=== PATIENT | female | born 1955 | race Caucasian/White ===

== ENCOUNTER → 2020-12-08 14:33 | Outpatient (CLI) | payer OTHER, SELFPAY ==
--- NOTE | 2020-12-08 14:41 | CT_ITS ---
STUDY: CT SCAN LOWER EXTREMITY LEFT REASON FOR EXAM: Female, 65 years old. Left knee varus deformity, surgical planning for makoplasty. RADIATION DOSAGE (If Supplied By Facility): CTDIvol = ( 18.76 ) mGy, DLP = ( 1150.41 ) mGycm. Individualized dose optimization techniques were used for this CT.? TECHNIQUE: Multiple axial tomographic images of the left lower extremity was performed. Axial and coronal reconstruction was obtained as well. COMPARISON: None. FINDINGS: Imaging of the left hip was performed. No significant joint space narrowing is seen. No bony abnormality is present. Imaging of the knee joint was obtained. There is a marked degree of joint space narrowing with subchondral cystic changes and sclerosis along the medial compartment of the knee joint. There is evidence of degenerative spur formation along the medial femoral condyle as well as the medial tibial plateau. Marked degree of joint space narrowing involving the patellofemoral joint. Imaging of the ankle was obtained as well. No significant abnormality is seen. CT/Extremity Lower without Contra IMPRESSION: Moderate degree of joint space narrowing with degenerative spur formation along the medial aspect of the knee joint as well as patellofemoral joint. Electronically Signed: Jabier Raza MD at 15:37 EST , Service support ,
== END ==
PROVIDERS: PCP Internal Medicine; Referring Provider Orthopaedic Surgery; Visit Provider Orthopaedic Surgery
DX: M21.162 Varus deformity, not elsewhere classified, left knee (principal); M17.12 Unilateral primary osteoarthritis, left knee
CPT/HCPCS: 73700

== ENCOUNTER 2020-12-26 07:32 | Observation (INO) | payer OTHER, MEDICARE, SELFPAY ==
--- NOTE | 2020-12-19 10:55 | EKG12_ITS ---
Test Reason : PRE OP Blood Pressure : / mmHG Vent. Rate : 092 BPM Atrial Rate : 092 BPM P-R Int : 150 ms QRS Dur : 092 ms QT Int : 360 ms P-R-T Axes : 068 062 065 degrees QTc Int : 445 ms Normal sinus rhythm Normal ECG Confirmed by MAHESH ZULUAGA, IRLANDA ([id number]), online editor CHRISTY SAMUEL ([id number]) on 12/20/2020 10:30:27 AM Referred By: Dharmesh Delcid Confirmed By:IRLANDA ARAGON MD
[2020-12-19 12:03] LABS: Hematocrit 38.8 % (37-47); Mean Corp Hgb Conc 33.5 g/dL (32-36); Mean Corpuscular Hgb 30.1 pg (27.0-32.0); Mean Corpuscular Volume 89.8 fL (81-99); Mean Platelet Vol. 10.3 fl (6.2-12.0); Platelet Count 163 K/mm3 (150-450); RBC Distribution Width CV 12.7 % (11.6-14.6); RBC Distribution Width SD 40.8 fl (35.1-43.9); Red Blood Count 4.32 M/mm3 (4.2-5.4); White Blood Count 7.3 K/mm3 (4.4-11.0)
[2020-12-19 12:58] LABS: Anion Gap 8 (5-15); BUN 21 mg/dL (7-18); BUN/Creat Ratio 26.6 RATIO (10-20); Calcium,Total 9.4 mg/dL (8.5-10.1); Chloride 104 mmol/L (98-107); Creatinine, Serum 0.79 mg/dL (0.55-1.02); EST Glomerular Filtration Rate 78 mL/min (>60); Est Glom Filt Rate - Afr Amer 94 mL/min (>60); Glucose 104 mg/dL (74-106); Sodium Level 140 mmol/L (136-145)
[2020-12-19 13:06] LABS: Magnesium 2.1 mg/dL (1.6-2.6); Thyroid Stim Hormone (TSH) 0.81 uIU/mL (0.358-3.74)
[2020-12-26] VITALS (17 sets, daily range): BP systolic 79–139; BP diastolic 47–89; PULSE 75–95; RESP 16–18; TEMP 36.2–36.8; O2SAT 88–100; BMI 31.7
--- NOTE | 2020-12-26 | KNEE_PTH ---
PATIENT: LEOLA GANNON LOC: MS3 U#:[id number] AGE/SX: 65/F ROOM: CT313 RE12/26/[address]: Dr. Dharmesh Delcid DO : 1955 BED: 1 DIS: 12/27/2020 SPEC #: [id number] RECD: 12/26/20 12:50 STATUS: ANNIE DANIELLE #: [id number] GIORGIO: 12/26/20 00:[address]: Dharmesh Delcid DEPT: SURGICAL PATHOLOGY RECD BY: [place] ENTERED: 12/26/20 12:51 SP TYPE: TOTAL KNEE OTHR DR: Dr. Salma Vang MD Tissues: Knee, NOS Procedures: Decalcification bone/plaque Surgery Specimen Level IV HEADER OPERATION: ERAS, total knee replacement, robotic arm assist PRE-OP DIAGNOSIS: Osteoarthritis left knee TISSUE SUBMITTED: Bone and soft tissue left knee MICROSCOPIC DIAGNOSIS Bone and tissue, left knee, total knee replacement/resection: Pieces of bone with degenerative osteoarthritic changes. KIM:ally 12/29/2020 MICROSCOPIC DESCRIPTION Slides are reviewed. GROSS DESCRIPTION Received is one container designated bone and soft tissue left knee. The specimen consists of multiple fragments of quiñonez-yellow bone measuring in aggregate 11 x 10 x 3 cm. No soft tissue is identified. A number of bony fragments contain articular surfaces consistent with tibial plateau and femoral condyle and displaying prominent osteophyte formation and bone erosion. Still Operator sections are submitted in two cassettes after decalcification. / KIM:ally 12/26/20 TC:5 CPT: 14770, 34155
[2020-12-26 05:56] LABS: Bedside Glucose 108 mg/dL (70-110)
[2020-12-26] MEDS: Gabapentin 600 MG Tablet PO (06:22)
[2020-12-26] MEDS: Acetaminophen 500 MG Tablet 1000 MG PO ×3 (06:22→22:09)
[2020-12-26] MEDS: Lactated Ringers 1,000 ML 100 ML IV (06:30)
[2020-12-26] MEDS: Cefazolin 2 GM in 0.9% Normal Saline 100 ML IV (07:33)
[2020-12-26] MEDS: Scopolamine 1mg/72hr Patch 1 PATCH TD (07:45)
--- NOTE | 2020-12-26 08:48 | PCM.OPRPT ---
Report of Operation Date of Procedure: 12/26/20 Pre-Operative Diagnosis: OA Left knee Post-Operative Diagnosis: same Surgery/Procedure Performed:: Left TKR buttonhole maker hand: Blayne Loza Type of Anesthesia:: Spinal Anesthesiologist: Wily Weller Special Medications: TXA Specimen's removed: bone Estimated Blood Loss (mL): 25cc Fluids Replaced: 1000 cc crystalloid - Admit VTE Documentation VTE Present on Admission: No VTE Mechan Device Prophylaxis: SCD's, Thigh High ABBEY Hose VTE Pharm Prophylaxis ordered?: Yes
--- NOTE | 2020-12-26 09:35 | RAD_ITS ---
STUDY: X-RAY - LEFT KNEE REASON FOR EXAM: Female, 65 years old. post op -- AP and Lateral xray of operative knee in PACU TECHNIQUE: 2 view(s) of the knee. COMPARISON: None. FINDINGS: Status post total knee arthroplasty. Surgical hardware intact/well aligned. No acute complications. Postoperative soft tissues with staple line. RAD/Knee 1 or 2 Views IMPRESSION: Uncomplicated left knee arthroplasty Electronically Signed: Devin wSan DO at 9:58 EST Tel , Service support ,
[2020-12-26 10:36] LABS: Hematocrit 37.4 % (37-47); Mean Corp Hgb Conc 32.1 g/dL (32-36); Mean Corpuscular Hgb 28.4 pg (27.0-32.0); Mean Corpuscular Volume 88.6 fL (81-99); Mean Platelet Vol. 10.1 fl (6.2-12.0); Platelet Count 189 K/mm3 (150-450); RBC Distribution Width CV 12.2 % (11.6-14.6); RBC Distribution Width SD 39.4 fl (35.1-43.9); Red Blood Count 4.22 M/mm3 (4.2-5.4); White Blood Count 6.3 K/mm3 (4.4-11.0)
[2020-12-26 10:57] LABS: Anion Gap 4 (5-15); BUN 18 mg/dL (7-18); BUN/Creat Ratio 19.2 RATIO (10-20); Calcium,Total 8.6 mg/dL (8.5-10.1); Chloride 107 mmol/L (98-107); Creatinine, Serum 0.94 mg/dL (0.55-1.02); EST Glomerular Filtration Rate 64 mL/min (>60); Est Glom Filt Rate - Afr Amer 77 mL/min (>60); Estimated Creatinine Clearance 49.36 ml/min; Glucose 141 mg/dL (74-106); Potassium 3.8 mmol/L (3.5-5.1); Sodium Level 139 mmol/L (136-145)
[2020-12-26] MEDS: Lactated Ringers 1,000 ML 125 ML IV ×3 (10:59→20:00)
[2020-12-26] MEDS: 0.9% Saline Lock 10 ML Syringe IV (12:14)
[2020-12-26] MEDS: Ondansetron 4 MG/2 ML Vial IV (12:14)
[2020-12-26] MEDS: Cefazolin 1 GM/50 ML BAG IV ×2 (15:02→22:33)
[2020-12-26] MEDS: Senna/Docusate Sodium 1 Tablet 2 TABLET PO (22:09)
[2020-12-26] MEDS: Aspirin 81 MG TAB.CHEW PO (22:09)
[2020-12-26] MEDS: Atorvastatin Calcium 40 MG Tablet PO (22:09)
[2020-12-27 02:50] VITALS: BP 114/62; PULSE 69; RESP 18; TEMP 36.6; O2SAT 94
[2020-12-27] MEDS: Levothyroxine 150 MCG Tablet PO (05:22)
[2020-12-27] MEDS: Lactated Ringers 1,000 ML 125 ML IV (05:22)
[2020-12-27] MEDS: oxyCODONE 5 MG Tablet PO ×3 (05:22→13:57)
[2020-12-27] MEDS: Acetaminophen 500 MG Tablet 1000 MG PO ×2 (06:15→13:56)
[2020-12-27 06:16] LABS: Hemoglobin 9.8 g/dL (12.0-15.0); Mean Corp Hgb Conc 31.6 g/dL (32-36); Mean Corpuscular Hgb 28.3 pg (27.0-32.0); Mean Corpuscular Volume 89.6 fL (81-99); Mean Platelet Vol. 10.3 fl (6.2-12.0); Platelet Count 155 K/mm3 (150-450); RBC Distribution Width CV 12.4 % (11.6-14.6); Red Blood Count 3.46 M/mm3 (4.2-5.4); White Blood Count 10.3 K/mm3 (4.4-11.0)
[2020-12-27 06:36] LABS: Anion Gap 4 (5-15); BUN 18 mg/dL (7-18); BUN/Creat Ratio 24.9 RATIO (10-20); Calcium,Total 8.7 mg/dL (8.5-10.1); Chloride 109 mmol/L (98-107); Creatinine, Serum 0.72 mg/dL (0.55-1.02); EST Glomerular Filtration Rate 86 mL/min (>60); Est Glom Filt Rate - Afr Amer 104 mL/min (>60); Estimated Creatinine Clearance 64.44 ml/min; Glucose 115 mg/dL (74-106); Potassium 4.4 mmol/L (3.5-5.1); Sodium Level 142 mmol/L (136-145)
[2020-12-27 07:41] VITALS: O2SAT 94
--- NOTE | 2020-12-27 07:54 | PCM.PN.ORT ---
Subjective: Patient sitting at bedside. Patient states pain is well-managed. Patient denies chest pain, shortness of breath, nausea vomiting. Patient has no other complaints ready for discharge home today. Objective: Dressings clean dry intact. Negative signs and symptoms of DVT. Vital signs labs reviewed noted in medical record. Patient is afebrile. Patient's neurovascular is otherwise intact. Patient is no respiratory distress, speaking in full sentences. - Physical Exam Vitals/I&O's: Vital Signs Temp Pulse Resp BP Pulse Ox 98 F 69 18 114/62 94 12/27/20 02:50 12/27/20 02:50 12/27/20 02:50 12/27/20 02:50 12/27/20 02:50 Oxygen Flow Rate (L/min) 2 Oxygen Delivery Method Nasal Cannula Weight: 81.2 kg Body Mass Index (BMI) 31.7 Intake and Output for Last 24 Hours 12/25/20 12/26/20 12/27/20 23:59 23:59 23:59 Intake Total 3312.08 / 3312.08 1000 / 1000 Balance 3312.08 / 3312.08 1000 / 1000 General: Alert, Oriented x3, Cooperative HEENT: PERRLA Oral: Moist Mucosa Skin: No rashes Neurological: Cranial nerves II-XII grossly intact Psych/Mental Status: Normal Affect, Alert and oriented to time, place, person, mood and affect Laboratory Results 12/26/20 10:25: WBC 6.3, RBC 4.22, Hgb 12.0, Hct 37.4, MCV 88.6, MCH 28.4, MCHC 32.1, RDW Std Deviation 39.4, RDW Coeff of Mat 12.2, Plt Count 189, MPV 10.1 12/26/20 10:25: Sodium 139, Potassium 3.8, Chloride 107, Carbon Dioxide 28.0, Anion Gap 4 L, BUN 18, Creatinine 0.94, Estim Creat Clear Calc 49.36, Est GFR (MDRD) Af Amer 77, Est GFR (MDRD) Non-Af 64, BUN/Creatinine Ratio 19.2, Glucose 141 H, Calcium 8.6 12/27/20 05:50: WBC 10.3, RBC 3.46 L, Hgb 9.8 L, Hct 31.0 L, MCV 89.6, MCH 28.3, MCHC 31.6 L, RDW Std Deviation 40.0, RDW Coeff of Mat 12.4, Plt Count 155, MPV 10.3 12/27/20 05:50: Sodium 142, Potassium 4.4, Chloride 109 H, Carbon Dioxide 29.0, Anion Gap 4 L, BUN 18, Creatinine 0.72, Estim Creat Clear Calc 64.44, Est GFR (MDRD) Af Amer 104, Est GFR (MDRD) Non-Af 86, BUN/Creatinine Ratio 24.9 H, Glucose 115 H, Calcium 8.7 Current Medications Acetaminophen (Acetaminophen 500 Mg Tablet) 1,000 mg PO Q8H [facility] Last Admin: 12/27/20 06:15 Dose: 1,000 mg Documented by: Aspirin (Aspirin 81 Mg Tab.Chew) 81 mg PO BID [facility] Last Admin: 12/26/20 22:09 Dose: 81 mg Documented by: Atorvastatin Calcium (Atorvastatin Calcium 40 Mg Tablet) 40 mg PO QHS [facility] Last Admin: 12/26/20 22:09 Dose: 40 mg Documented by: Lactated Ringer's () 1,000 mls @ 125 mls/hr IV .Q8H [facility] Last Admin: 12/27/20 05:22 Dose: 125 mls/hr Documented by: Levothyroxine Sodium (Levothyroxine 150 Mcg Tablet) 150 mcg PO DAILY@0600 [facility] Last Admin: 12/27/20 05:22 Dose: 150 mcg Documented by: Ondansetron HCl (Ondansetron 4 Mg/2 Ml Vial) 4 mg IV Q8H PRN PRN PRN Reason: NAUSEA Last Admin: 12/26/20 12:14 Dose: 4 mg Documented by: Oxycodone HCl (Oxycodone 5 Mg Tablet) 5 - 10 mg PO Q4H PRN PRN PRN Reason: Pain Score 4-10 Last Admin: 12/27/20 05:22 Dose: 10 mg Documented by: Promethazine HCl (Promethazine 25 Mg/Ml Syringe) 12.5 mg IM Q6H PRN PRN; Protocol PRN Reason: NAUSEA/VOMITING Senna/Docusate Sodium (Senna/Docusate Sodium 1 Tablet) 2 tablet PO BID [facility] Last Admin: 12/26/20 22:09 Dose: 2 tablet Documented by: Sodium Chloride (0.9% Saline Lock 10 Ml Syringe) 10 - 40 ml IV UD PRN PRN Reason: SALINE FLUSH Last Admin: 12/26/20 12:14 Dose: 10 ml Documented by: Medical Necessity - Tobacco Use Smoking Status: Never smoker Assessment/Plan Status post left total knee arthroplasty Plan 1. Continue all pain medications as prescribed 2. Begin physical therapy weight-bear as tolerated with walker 3. Continue physical therapy outpatient at [facility] [place] 4. 81 mg aspirin 1 p.o. every 12 hours x30 days for postop DVT prophylaxis 5. Encourage incentive spirometry 6. Discharge home today after p.m. therapy 7. Follow-up as scheduled, see pink sheet
--- NOTE | 2020-12-27 08:00 | PCM.DC.TKR ---
Discharge Diet: No Restrictions Discharge Activity: May Not Drive, May Shower, Use Walker May shower in (days): 3 Ice area for (Minutes): 20 - each hour while awake. Weight Bearing Status: Weight bearing as tolerated Elevate: Operative Extremity Additional Activity Instructions:: Wear elastic stockings for 2 weeks after your surgery. Call your doctor if your incision/area has: Continuous Slow Oozing, Sudden Increased Bleeding, Increased Pain/ Swelling, Increased Redness, Foul Smelling Discharge Call your doctor if you observe: Fever of 101 or Higher, Coldness, Increased Pain - in extremity, Numbness or Tingling, Change in Color, Calf discomfort, Uncontrolled pain Change Dressing in (Days):: 0 - and daily as needed. Remove Dressing in (days):: 8 Cleanse incision/area with: Soap & Water Allergies/Adverse Reactions: Allergies No Known Allergies Allergy (Verified 12/26/20 05:57) Medications to take at Discharge Cholecalciferol (Vitamin D3) [Vitamin D3] 10,000 unit PO DAILY 11/22/14 Levothyroxine [Synthroid] 150 mcg PO DAILY 11/22/14 Rosuvastatin Calcium 20 mg PO DAILY 12/12/20 Acetaminophen [Tylenol] 1,000 mg PO Q8H #90 tab 12/27/20 Aspirin [Aspirin, Baby] 81 mg PO BID #60 tab.chew 12/27/20 Oxycodone [Oxyir] 5 - 10 mg PO Q4H PRN PRN 7 Days #84 tablet 12/27/20 Senna/Docusate Sodium [Senokot-S] 2 tablet PO BID tablet 12/27/20 The following prescriptions were given: Aspirin [Aspirin, Baby] 81 mg PO BID #60 tab.chew Transmission Status: Pending to [facility] Oxycodone [Oxyir] 5 - 10 mg PO Q4H PRN PRN 7 Days #84 tablet PRN Reason: Pain Score 4-10 Transmission Status: Sent to [facility] Acetaminophen [Tylenol] 1,000 mg PO Q8H #90 tab Transmission Status: Pending to [facility] Primary Care Physician: Salma Vang MD [Primary Care Provider] - Test Results: Test results from this visit will be discussed in further detail at your follow-up appointment, if applicable. Please Follow Up With: Blayne Loza PA-C When: as scheduled (see pink sheet)
--- NOTE | 2020-12-27 09:37 | PHA.DC.MC ---
Pharmacy Service has performed discharge medication reconciliation and counseling for this patient. 1. ACETAMINOPHEN 1000MG Q8H 2. ASPIRIN 81MG PO BID 3. OXYCODONE 5-10MG PO Q4H PRN PAIN 4-10 X 7 DAYS 4. SENNA/DOCUSATE 1T PO BID The patient's discharge medication list was reviewed for discrepancies and discrepancies were resolved. Home Medications Cholecalciferol (Vitamin D3) [Vitamin D3] 10,000 unit PO DAILY 11/22/14 Levothyroxine [Synthroid] 150 mcg PO DAILY 11/22/14 Rosuvastatin Calcium 20 mg PO DAILY 12/12/20 Acetaminophen [Tylenol] 1,000 mg PO Q8H #90 tab 12/27/20 Aspirin [Aspirin, Baby] 81 mg PO BID #60 tab.chew 12/27/20 Oxycodone [Oxyir] 5 - 10 mg PO Q4H PRN PRN 7 Days #84 tab 12/27/20 Senna/Docusate Sodium [Senokot-S] 2 tab PO BID tab 12/27/20 The patient was counseled on the following discharge medications and changes in medications for homegoing were reviewed. The Reason for Use, instructions for use, and potential side effects were reviewed for all new medications. The patient's questions regarding all of their medications were answered. The patient was able to verbally demonstrate an understanding of their discharge medications.
[2020-12-27] MEDS: Senna/Docusate Sodium 1 Tablet 2 TABLET PO (09:58)
[2020-12-27] MEDS: 0.9% Saline Lock 10 ML Syringe IV (09:58)
[2020-12-27] MEDS: Aspirin 81 MG TAB.CHEW PO (09:58)
[2020-12-27 10:12] VITALS: BP 100/50; PULSE 76; RESP 18; TEMP 37.2; O2SAT 93
--- NOTE | 2020-12-27 10:35 | CASEMGMT ---
AMERICO AVERY Face to Face with patient for initial transition planning/care coordination assessment. RN CM introduced self and role at [facility]. Patient sitting in chair, alert and oriented. Patient willing to participate in assessment and is able to answer all questions appropriately. Care providers, pharmacy, and demographics verified. Patient wishes to discharge home and is setup with [facility] for outpatient therapy. Patient states she has no further needs or concerns at this time. CM to follow for discharge planning needs that may arise. PCP: Taj Specialists: rob Delcid Preferred Pharmacy: [email or web address] Insurance: [employer] Prescription Benefit: Yes Living Will/HPOA: yes, Krishna Stern LNOK: Living Arrangements: Patient lives with in a condo with 1 step to enter the home. Patient states she was independent prior to surgery. Transportation: DME/C: Patient states she has shower chair, raised toilet, grab bars, and walker at home. Patient has outpatient therapy setup with 12/30 at [facility]. Disposition Plan: Patient to discharge home with outpatient therapy, family support, and follow-up plans in place. Akua DIANE, RN, CM
[2020-12-27 13:01] VITALS: BP 127/61; PULSE 85; RESP 18; TEMP 37.2; O2SAT 94
== END 2020-12-27 14:10 | disposition home or self-care (01) ==
LOC: SDC 08:04 → MS3 08:04
PROVIDERS: Anesthesiology; Admitting Provider Orthopaedic Surgery; PCP Internal Medicine; Referring Provider Orthopaedic Surgery; Visit Provider Orthopaedic Surgery
PROC: 0SRD0JZ Replacement of Left Knee Joint with Synthetic Substitute, Open Approach (ICD-10-PCS; CPT 27447; principal; 2020-12-26 07:00)
DX: M17.12 Unilateral primary osteoarthritis, left knee (principal); Z20.828 Contact with and (suspected) exposure to other viral communicable diseases; E03.9 Hypothyroidism, unspecified; F41.9 Anxiety disorder, unspecified; F32.9 Major depressive disorder, single episode, unspecified; I25.2 Old myocardial infarction; I48.91 Unspecified atrial fibrillation; J45.909 Unspecified asthma, uncomplicated; E78.00 Pure hypercholesterolemia, unspecified; Z79.899 Other long term (current) drug therapy; Z79.82 Long term (current) use of aspirin
CPT/HCPCS: 01402; 27447; 64447; 36415; 73560; 80048; 82962; 83735; 84443; 85027; 87081; 87426; 88305; 88311; 93005; 96361; 96374; 97110; 97116; 97162; 97166; 97530; 97535; 99218; 99251; C1776; C9803; J7120; A4216; G0378; G0379; G0463; J2405

== ENCOUNTER 2021-01-02 11:21 | Emergency (ER) | payer OTHER, SELFPAY ==
[2020-12-26 11:33] VITALS: BMI 31.7
[2021-01-02 11:22] VITALS: BP 161/89; PULSE 103; RESP 16; TEMP 36.8; O2SAT 98; BMI 31.3
--- NOTE | 2021-01-02 11:45 | ED.VIS.GEN ---
History of Present Illness Chief Complaint: Constipation Informant: Patient, Significant Other Onset: Days Context: Sudden Onset Timing: Continuous Quality: Generalized abdominal pain Location: Generalized Current Severity: Mild Maximum Severity: Moderate Worsened by: No bowel movement Relieved by: Nothing Associated Symptoms: Nausea and vomiting December 27 Narrative: She is 65-year-old woman status post orthopedic knee surgery on oxycodone who presents because of nausea and vomiting December 27. She is not had vomiting since. She has no history of abdominal surgery. She has not had a normal vomiting for 8 days. Not had a bowel movement for the past 24 to 48 hours. She feels stool is stuck in her rectum. Nothing is alleviated the constipation. She has no other symptoms. She was not instructed to take Metamucil or MiraLAX. Prior similar symptoms: No Recent Illness/Hospitalization: Yes - Past Medical History (1) No significant active problems Status: Acute Past Medical History - Allergies and Home Meds Allergies/Adverse Reactions: Allergies No Known Allergies Allergy (Verified 12/26/20 05:57) Primary Care Physician: Salma Vang MD [Primary Care Provider] - Prior records reviewed: Yes Lives: Spouse/ Significant Other Smoking Status: Never smoker Alcohol: None Drugs: None Review of Systems General: Denies: Chills, Fever, Malaise, Sweats Eyes: Denies: Visual changes - bilaterally, Blurred Vision - bilaterally Cardiovascular: Denies: Chest pain, Palpitations Respiratory: Denies: Dyspnea, Cough, Dyspnea on exertion Gastrointestinal: Reports: Abdominal pain, Nausea, Constipation. Denies: Vomiting, Diarrhea, Melena, Hematochezia, -, - Genitourinary: Denies: Dysuria, Hematuria, Frequency Musculoskeletal: Denies: Back pain, Extremity Pain Hematologic: Denies: Easy bruising, Easy bleeding Physical Exam Vital Signs/Narrative: Vital Signs Temp Pulse Resp BP Pulse Ox 01/02/21 11:22 98.3 F 103 H 16 161/89 H 98 Inital Vital Signs reviewed: Yes General: Well nourished, Well developed, Obese, Acute Distress - Patient appears uncomfortable and is crying. Head: Normocephalic, Atraumatic Eyes: Perrl, EOMI. Negative for: Scleral icterus ENT: Moist mucous membranes Cardiovascular: Regular rate, Regular rhythm Respiratory: No distress Abdomen: Soft, Nontender, Nondistended, No masses, Hypoactive bowel sounds. Negative for: Normal bowel sounds Rectal: - - Full is brown. There is a large stool mass noted just superior to my finger. Back: Nontender, Normal Inspection Extremities: Nontender, No edema Skin: Normal color, No rash Neurological: Alert, Oriented x3, Cranial nerves II-XII grossly intact, Normal Strength, Normal Sensation Psychological: Tearful Diagnostic/Tx/Re-eval Chest X-Ray - ED: 2 View, Read by ED Physician, - - There is evidence of constipation without evidence of obstruction. There is no evidence of pneumoperitoneum. - Medical Decision Making Patient has obstipation due to opiate analgesia. Abdominal series was obtained to rule out obstruction. If there is no evidence obstruction will treat appropriately as outpatient. ED Disposition - Plan for ED Patient: Disposition: Home or Assisted Living Diagnosis: Constipation due to pain medication Instructions: ED Constipation (Adult) Referrals: Salma Vang MD [Primary Care Provider] - As Needed Additional Instructions: 4 hours after drinking the mag citrate in the apartment department drink a glass of MiraLAX and continue to drink a glass of MiraLAX every 1-2 hours while awake until you have results. You will need to take MiraLAX 2-3 times a day while on the pain medicine: Otherwise, this will recur.
--- NOTE | 2021-01-02 12:20 | RAD_ITS ---
STUDY: X-RAY - ABDOMEN/PELVIS REASON FOR EXAM: Female, 65 years old. Nausea, pain and constipation TECHNIQUE: 3 views of the abdomen/pelvis. COMPARISON: None. FINDINGS: Normal visualized lung bases. Constipation with nonobstructive bowel gas pattern. Osseous structures intact with degenerative features. RAD/Abd Inc Decub and/or Erect IMPRESSION: Constipation with nonobstructive bowel gas pattern Electronically Signed: Devin Swan DO at 12:37 EDT Tel , Service support ,
[2021-01-02 13:20] VITALS: BP 122/65; PULSE 86; RESP 16; O2SAT 94
[2021-01-02] MEDS: Magnesium Citrate 300 ML 150 ML PO (13:20)
--- NOTE | 2021-01-02 13:21 | ED.RN ---
REVIEWED D/C INSTRUCTIONS, FOLLOW UP CARE, MEDICATIONS, AND S/S THAT WOULD WARRANT A RETURN TO THE ED WITH PT. PT VERBALIZED AN UNDERSTANDING AND DENIES FURTHER QUESTIONS FOR THIS RN. PT SKIN P/W/D, RESP EVEN AND UNLABORED, PT A&O X 3, NO DISTRESS NOTED. PT ASSISTED OUT OF ED IN WHEELCHAIR.
== END 2021-01-02 13:26 | disposition home or self-care (01) ==
PROVIDERS: Emergency Provider Emergency Medicine; PCP Internal Medicine
DX: K59.03 Drug induced constipation (principal); T40.605A Adverse effect of unspecified narcotics, initial encounter; Y92.9 Unspecified place or not applicable; Z79.899 Other long term (current) drug therapy; Z79.82 Long term (current) use of aspirin; E66.9 Obesity, unspecified
CPT/HCPCS: 74019; 99283

== ENCOUNTER → 2021-01-06 14:38 | Outpatient (CLI) | payer OTHER, SELFPAY ==
[2021-01-02 11:22] VITALS: BMI 31.3
--- NOTE | 2021-01-06 14:43 | VDLE_ITS ---
Reason For Study: LLE PAIN RIGHT LEFT CFV is compressible, spontaneous, phasic, GSV is normal. competent and demonstrates normal CFV is compressible, spontaneous, phasic, augmentation. competent, and demonstrates normal Procedure augmentation. This is a venous duplex using B-mode, color FV is compressible, spontaneous, phasic, flow and spectral Doppler. competent and demonstrates normal Exam performed in department. augmentation. The study was technically difficult. POP V is compressible, spontaneous, phasic, The exam was diagnostic. competent and demonstrates normal A preliminary report was called and/or faxed augmentation. to Neeta @ [facility] @3:15 PM. T/P TRUNK, PTV & PERV ARE DILATED AND Latricia from Dr. Powell's office asked for NONCOMPRESSIBLE. patient to be sent to office [facility] for treatment. Interpretation Summary Acute deep vein thrombosis is noted in the left tibio-peroneal trunk. Acute deep vein thrombosis is noted in the left posterior tibial vein. Acute deep vein thrombosis is noted in the left peroneal vein. The remaining portion of the left lower extremity deep venous system is patent and compressible. Valvular competence appears intact within the proximal deep venous system on the left . The left great saphenous vein appears patent and compressible segmentally. Ordering Physician: Dharmesh Delcid Referring Physician: Salma Vang Performed By: Donna Christian, DEJUAN, RVT
== END ==
PROVIDERS: PCP Internal Medicine; Referring Provider Orthopaedic Surgery; Visit Provider Orthopaedic Surgery
DX: M79.605 Pain in left leg (principal)
CPT/HCPCS: 93971

== ENCOUNTER → 2022-07-03 | Outpatient (CLI) | payer BC, SELFPAY ==
--- NOTE | 2022-07-03 11:55 | BRBX_PTH ---
PATIENT: LEOLA GANNON LOC: [facility]A U#:[id number] AGE/SX: 67/F ROOM: RE07/03/[address]: Dr. Radha Robbins MD : 1955 BED: DIS: 07/03/2022 SPEC #: [id number] RECD: 07/03/22 12:36 STATUS: ANNIE REJosé Miguel #: [id number] GIORGIO: 07/03/22 11:[address]: Radha Robbins DEPT: SURGICAL PATHOLOGY RECD BY: Yaa Montero ENTERED: 07/03/22 12:47 SP TYPE: BREAST BX OTHR DR: Dr. Salma Vang MD Tissues: Right breast, NOS Procedures: Surgery Specimen Level IV HEADER OPERATION: Right breast stereotactic biopsy PRE-OP DIAGNOSIS: Microcalcifications retroareolar / medial breast TISSUE SUBMITTED: Right breast ISCHEMIC TIME: 2 minutes FIXATION TIME: 7.5 hours MICROSCOPIC DIAGNOSIS Right breast, microcalcifications retroareolar, medial breast, stereotactic core biopsy: Intraductal hyperplasia with focal atypia. Fibrocystic changes. Focal polarizable microcalcifications. Negative for malignancy. See comment. KIM:ally 07/04/2022 COMMENT Correlation with clinical, radiologic findings and appropriate follow up are necessary. MICROSCOPIC DESCRIPTION Slides are reviewed. GROSS DESCRIPTION Received in fixative is one container labeled with the patient's name and designated right breast. The specimen consists of multiple elongated fragments of quiñonez-yellow fibroadipose tissue that in aggregate measure 3 x 2 x 0.3 cm. The entire specimen is submitted in two cassettes. / KIM:ally 07/03/2022 TC:5 CPT: 39988
--- NOTE | 2022-07-03 12:13 | OP.PCM_ITS ---
Report of Operation Date of Procedure: 07/03/22 Pre-Operative Diagnosis: abnormal calcifications on right breast mammograms Post-Operative Diagnosis: same Surgery/Procedure Performed:: right breast stereotactic biopsy Surgeon: Radha Robbins Type of Anesthesia: Local Specimen's removed: right breast tissue Estimated Blood Loss (mL): 1 ml Description of Procedure: After informed consent was given, the patient was brought into the Breast Biopsy suite. Appropriate time out protocol was followed. The patient was placed in the prone position on the stereotactic biopsy table. The patient?s right breast was then placed in the opening at the head of the biopsy table. A needle loom operator compression mammogram was then obtained in the CC view. The suspicious radiological lesion was thus identified. Stereo pictures of the lesion were then taken for XYZ coordinates. The Mammotome biopsy stylus was then positioned where it would be entering into the patient?s breast. The skin at this site was then cleansed with a surgical skin preparation. The skin and subcutaneous tissues at this site were then infiltrated with 1% xylocaine. A small skin incision was made with an 11 blade scalpel. The biopsy stylus was then positioned into the patient?s breast at the proper coordinates of depth. Using the Mammotome vacuum-assist device, several core samples of breast tissue were obtained. A specimen mammogram was the obtained. It revealed that the abnormal calcifications were within the specimen. I reviewed this personally and concluded that the tissue sampling was adequate. A hemostatic marker clip was then placed into the biopsy cavity and a needle loom operator film revealed that it was properly deployed. The patient was then placed in the supine position and pressure was applied to the breast until no active bleeding was noted. A nylon suture was used to reapproximated the skin. A unilateral mammogram in the CC and MLO view were then taken which revealed that the marker clip was in the same area as the previous suspicious lesion. The patient tolerated the procedure well and was discharged from the Breast Biopsy suite in good condition. Complications none noted
== END | disposition home or self-care (01) ==
PROVIDERS: PCP Internal Medicine; Referring Provider Surgery; Visit Provider Surgery
DX: N60.91 Unspecified benign mammary dysplasia of right breast (principal); E78.5 Hyperlipidemia, unspecified; J45.909 Unspecified asthma, uncomplicated; E55.9 Vitamin D deficiency, unspecified; I25.2 Old myocardial infarction; Z79.82 Long term (current) use of aspirin; Z79.890 Hormone replacement therapy; Z79.899 Other long term (current) drug therapy
CPT/HCPCS: 19081; 88305; J7050

== ENCOUNTER 2022-09-11 11:12 | Day surgery (SDC) | payer BC, MEDICARE, SELFPAY ==
--- NOTE | 2022-09-10 18:27 | HP.PCM_ITS ---
History and Physical Date of Admission: 09/11/22 Valentina Stern1955 ? ? REFERRING PHYSICIAN:? ?Radha Robbins MD ? CHIEF COMPLAINT:? right breast atypia ? HPI: The patient is a 67 year old female is status post right breast needle core biopsy done on 07/03/2022 ? Pathology: intraductal hyperplasia with focal atypia Fibrocystic changes Focal polarizable microcalcifications Negative for malignancy ? Patient denies any problems from her biopsy ? ? PAST MEDICAL HISTORY ?Absence of menstruation? ?BCC (basal cell carcinoma), arm01/2012 ?Bowel disease? ?Derangement of anterior horn of medial meniscus? 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 ?Other specified erythematous condition(695.89)06/27/2006 ?Perioral dermatitis? ?Rash and other nonspecific skin gomybufw11/19/2006 ?ST elevation myocardial infarction (STEMI) of inferior wall, initial episode of care ([facility])06/14/13 ?status post successful PCI to RCA with 2.5x28 Promus Element Plus drug-eluting stent (LEONIE)? ?Unspecified asthma(493.90)10/08/2006 ?Unspecified vitamin D deficiency11/20/2006 ?? ? PAST SURGICAL HISTORY ?ANESTHESIA KNEE, ARTHROSCOPIC ? ?both knees ?BX OF BREAST; [id number]/14/2022 ?stereotactic [facility] ?PAST SURGICAL HISTORY OF ? ?Excision of BCC? ?Rt arm ?PAST SURGICAL HISTORY OF ? ?heart stent 05/2013 ?TYMPANIC MEMB RPR W/WO PREPJ PERFOR PATCH ? ?Tympanoplasty ? ? MEDICATIONS ?levothyroxine (SYNTHROID) 150 mcg tabletTake on empty stomach. For thyroid.? Take 1 tablet Saturday through Saturday and take 1/2 tablet on Saturday. ?nitroglycerin sublingual (NITROQUICK) 0.4 mg SL tabletDissolve 1 tablet under the tongue as needed. FOR CHEST PAIN. IF NO RELIEF CALL 911 ?fluticasone (FLONASE) 50 mcg/actuation nasal sprayUse 2 Sprays in each nostril once daily. Rinse mouth after use. ?rosuvastatin (CRESTOR) 20 mg tabletTake 1 tablet by mouth daily at bedtime. ?PARoxetine (PAXIL) 30 mg tabletTake 1 tablet by mouth once daily. ?Cholecalciferol, Vitamin D3, 1,000 unit capTake 1 capsule by mouth once daily. ?BIOTIN ORALTake? by mouth. ?MULTIVIT-MINERALS/FERROUS FUM (MULTI VITAMIN ORAL)Take? by mouth. ?aspirin 81 mg chewable tabletTake 2 tablets by mouth once daily. ?albuterol HFA (VENTOLIN HFA) 90 mcg/actuation inhalerInhale 2 Puffs as instructed every 4 hours as needed for wheezing/shortness of breath. ?MELATONIN ORALTake by mouth. (Patient not taking: Reported on 05/14/2022 ? ? ALLERGIES: Atorvastatin, Enviromental Allergies [Other], and Seasonal Allergies [Other] ? REVIEW OF SYSTEMS: ? ? ?General:? ?The patient denies fatigue, denies weight loss, denies weight gain, denies feeling hot, and denies feelings of cold. ? ? ?Eyes:? The patient denies glaucoma, denies eye injury/surgery, wears glasses or contacts. ? ? ?Ear/Nose/Throat:? The patient NOTES allergies, denies hayfever, denies ear infections, and denies bloody noses. ? ? ?Cardiovascular:? The patient denies chest pain, denies heart disease, denies high blood pressure,NOTES cardiac stent, denies prior heart attack, denies irregular heart beat, denies high cholesterol,? denies poor circulation, denies heart failure, other cardiac issues, denies claudication, denies cold feet, denies peripheral arterial stent. ? ? ?Respiratory:? The patient denies tuberculosis, denies pneumonia, denies frequent cough, denies pulmonary embolism, denies shortness of breath, and denies coughing up blood. ? ? ?Gastrointestinal:? The patient denies difficulty swallowing, denies acid reflux, denies ulcers, denies vomiting, denies jaundice/hepatitis, denies gallbladder problems, denies black or tarry stools, denies hemorrhoids, denies bleeding from rectum, denies diverticulitis, denies constipation, denies diarrhea, denies loss of stool control, and denies hernias. ? ? ?Kidney/Bladder:? The patient denies kidney stones, denies urine infections, and denies bloody urine. ? ? ?Skin:? The patient NOTES a history of skin cancer, denies bleeding/changing moles, and denies a history of skin rash. ? ? ?Neurologic:? The patient denies a history of epilepsy/convulsions, denies headaches, denies head/spinal injuries, and denies stroke/TIA. ? ? ?Psychiatric:? The patient denies psychiatric medications, NOTES depression, and denies voices, denies substance abuse. ? ? ?Endocrine:? The patient NOTES thyroid disorders, denies diabetes, and denies hormonal problems. ? ? ?Hematologic:? The patient denies a history of bruising, denies bleeding, and denies anemia, NOTES blood clots. ? ? ?Infections:? The patient denies a history of measles and mumps, denies rheumatic fever, and denies sexually transmitted diseases. ? ? ?Musculoskeletal:? The patient denies back pain/injury, denies back problem s, denies sciatica, NOTES knee/foot trouble, NOTES arthritis, or denies gout. ? ? ? PHYSICAL EXAMINATION: ? General:? The patient is 67 year old female, well nourished, well hydrated in no acute distress.? The patient is oriented to time, place, and person. ? VITALS: Blood pressure 122/78, pulse 82, temperature 36 ?C (96.8 ?F), SpO2 97 %. There is no height or weight on file to calculate BMI.? ? Head:? Normal cephalic, atraumatic ? Eyes: pupils are equally round, sclera are clear/anicteric ? Neck is supple with no tracheal deviation ? Chest: right breast with ecchymoses ? Respiratory:? Normal respiratory excursion and pattern. ? Abdominal exam:? benign ? Extremities:? no clubbing, cyanosis or edema.? ? Neuro: non focal ? Psych: normal mood? IMPRESSION: atypia of right breast ? ? PLAN:? ?I have discussed the above with the patient and her who is present with her. I have recommended right excisional breast biopsy via wire localization for findings of atypia by needle core biopsy. ? I have explained the procedure to the patient. I have counseled the patient as to the risks of the procedure, including but not limited to: infection, bleeding, injury to any blood vessels/nerves, scar tissue, cosmetic deformity, wound infections, complications of anesthesia, etc. ? the patient understands. The patient wishes to proceed. ? ? I have answered all questions to the patient?s satisfaction and the patient has no further questions. ?. . Diagnoses: (D48.61) Neoplasm of uncertain behavior of breast, right? (primary encounter diagnosis) ? Radha Robbins MD
[2022-09-11] VITALS (7 sets, daily range): BP systolic 121–135; BP diastolic 67–77; PULSE 67–78; RESP 16; TEMP 36.3–36.4; O2SAT 93–98; BMI 30.9
--- NOTE | 2022-09-11 11:30 | BI_ITS ---
SURGICAL BREAST SPECIMEN RADIOGRAPH CLINICAL: Document presence of tissue clip marker in biopsy specimen. FINDINGS: Specimen shows presence of calcifications. Electronically Signed: Jabier Raza MD at 8:18 EST , BI/Breast Biopsy Specimen IMPRESSION: undefined
[2022-09-11] MEDS: Cefazolin 2 GM in 0.9% Normal Saline 100 ML IV (12:56)
--- NOTE | 2022-09-11 12:58 | PCM.OPRPT ---
Report of Operation Date of Procedure: 09/11/22 Pre-Operative Diagnosis: atypical ductal hyperplasia of right breast by needle core biopsy Post-Operative Diagnosis: same as above Surgery/Procedure Performed:: right breast biopsy excision via wire localization Surgeon: Radha Robbins Type of Anesthesia: General Anesthesiologist: Yunior Amos Specimen's removed: right breast tissue Estimated Blood Loss (mL): < 10 ml Fluids Replaced: 350ml RL Description of Procedure: After informed consent was given, the patient was brought into the Breast Stereotactic Radiology suite. Appropriate time out protocol was followed. The patient was then placed in the prone position on the [place] stereotactic table. The patient?s right breast was placed in the opening at the head of the table. A side trimmer compression mammogram was then obtained in the CC view. The marker clip that was previously placed was identified. Stereo pictures of the lesion were then taken for XYZ coordinates. The Kopans needle was then positioned where it would be entering into the patient?s breast. The skin at this site was then cleansed with a surgical skin preparation. The skin and subcutaneous tissues at this site were then infiltrated with 1% xylocaine. The Kopans needle was then positioned into the patient?s breast at the proper coordinates of depth. A side trimmer film was obtained which revealed the wire in proper position. The patient was then placed in the supine position and the wire was taped into place. A unilateral mammogram in the CC and MLO view were then taken for use in the OR. The patient tolerated this portion of the procedure well and was brought to the AC awaiting surgery in the OR. The patient was then brought to the Operating Room. Appropriate time out protocol was followed. The patient was then placed on the operating table in the supine position. A wire had already been placed in the stereotactic biopsy room in the radiology department as described above. The right breast with the wire in placed was then prepped with a sterile surgical skin preparation and sterile surgical drapes were placed. The skin and subcutaneous tissues at the site of the breast lesion (which is retroareolar) was then infiltrated with 1% xylocaine with epinephrine. A upper inner circumareolar skin incision was then made with a 15 blade scalpel and carried down through to the subcutaneous tissues. Hemostasis was controlled with electrocautery. The wire was then palpated out within the breast tissue. It was brought into the wound from outside. The breast tissue surrounding the wire was then carefully palpated out and from the surrounding tissues using electrocautery. The breast tissue, once from the breast, was then forwarded to the radiology department, where a specimen mammogram revealed that the marker clip was within the specimen. The breast tissue was then forwarded to pathology for analysis. The wound cavity was carefully examined. No further suspicious tissue was palpated or visualized. Hemostasis was carefully controlled with electrocautery. The subdermal tissues were then approximated with vicryl suture. The incision was then reapproximated close using running monocryl suture. Cavilon and steristrips were then placed to reinforce the skin closure. Sponge, needle, and instrument count were verified and correct at the time of skin closure. A sterile dressing was then applied. The patient was then brought to the Recovery Room in stable condition. Complications none noted Admit VTE Documentation VTE Present on Admission: Yes VTE Mechan Device Prophylaxis: SCD's
--- NOTE | 2022-09-11 13:00 | BR_PTH ---
PATIENT: LEOLA GANNON LOC: [facility] [place] U#:[id number] AGE/SX: 67/F ROOM: RE09/11/[address]: Dr. Radha Robbins MD : 1955 BED: DIS: 09/11/2022 SPEC #: [id number] RECD: 09/11/22 13:53 STATUS: ANNIE REQ #: [id number] GIORGIO: 09/11/22 13:[address]: Radha Robbins DEPT: SURGICAL PATHOLOGY RECD BY: Yaa Montero ENTERED: 09/12/22 09:00 SP TYPE: MAMOPLASTY OTHR DR: Dr. Salma Vang MD Tissues: Right breast, NOS Procedures: Surgery Specimen Level V HEADER OPERATION: Re-excision breast biopsy, needle localization PRE-OP DIAGNOSIS: Atypia of right breast TISSUE SUBMITTED: Right breast mass, one short suture - superior, one long suture - lateral, two short sutures - posterior MICROSCOPIC DIAGNOSIS Right breast mass, excisional biopsy with needle localization: Intraductal hyperplasia with focal atypia. Intraductal papilloma with focal minimal atypia. Fibrocystic changes and adenosis. Changes consistent with previous biopsy site. Negative for malignancy. SJ:ally 09/17/2022 COMMENT Please make reference to previous specimen ([id number]) right breast, microcalcifications retroareolar, medial breast, stereotactic core biopsy with diagnosis of ?intraductal hyperplasia with focal atypia and fibrocystic changes.? Case has been reviewed in consultation with Dr. Lopez who concurs with the above diagnosis. IDC:AM MICROSCOPIC DESCRIPTION Slides are reviewed. GROSS DESCRIPTION Received in fixative is one container labeled with the patient's name and designated right breast mass. The specimen consists of a piece of fibroadipose tissue with needle localization measuring 5.5 x 4.5 x 2 cm. The specimen is oriented as follows: one short suture - superior, one long suture - lateral, two short sutures - posterior. The specimen is inked as follows: anterior - yellow, posterior - black, superior - blue, inferior - green, medial - red and lateral - orange. Sections reveal a quiñonez, indurated area with central biopsy cavity measuring 1 x 0.7 x 1 cm. No mass lesion is identified. The biopsy cavity is 1 cm away from the closest posterior margin. A small quiñonez, indurated nodule is also noted away from the biopsy cavity measuring 0.7 cm in greatest dimension. Fish Hatchery Superintendent sections are submitted in 12 cassettes as follows: 1 - perpendicular superior, inferior and lateral margins, 2-8 - biopsy cavity with surrounding area including perpendicular anterior, medial and posterior margins, 9-11 - separate quiñonez, indurated area, 12??associate sales representative section from the other area. Sections will be submitted after additional fixation. / SJ:ally 09/12/2022 TC:5 CPT: 83346
[2022-09-11] MEDS: Lidocaine 2% /Epi 1:100 (20ml) 20 ML VIAL (13:15)
== END 2022-09-11 15:49 | disposition home or self-care (01) ==
LOC: SDC 11:19 → AC 11:21
PROVIDERS: PCP Internal Medicine; Referring Provider Surgery; Visit Provider Surgery
PROC: (CPT 19125; principal; 2022-09-11 12:45)
DX: N60.91 Unspecified benign mammary dysplasia of right breast (principal); E78.5 Hyperlipidemia, unspecified; E03.8 Other specified hypothyroidism; J45.909 Unspecified asthma, uncomplicated; E55.9 Vitamin D deficiency, unspecified; I25.2 Old myocardial infarction; Z79.82 Long term (current) use of aspirin; Z79.890 Hormone replacement therapy; Z79.899 Other long term (current) drug therapy; Z85.828 Personal history of other malignant neoplasm of skin
CPT/HCPCS: 19125; 19281; 76098; 88305; 88307; J7120

== ENCOUNTER 2025-07-01 15:44 | Emergency (ER) | payer MEDICARE, OTHER, SELFPAY ==
[2025-07-01] VITALS (8 sets, daily range): BP systolic 125–158; BP diastolic 61–73; PULSE 49–65; RESP 10–16; TEMP 36.6–36.8; O2SAT 93–99; BMI 28.8
--- NOTE | 2025-07-01 15:55 | EKG12_ITS ---
Test Reason : BP Blood Pressure : */* mmHG Vent. Rate : 55 BPM Atrial Rate : 55 BPM P-R Int : 178 ms QRS Dur : 82 ms QT Int : 446 ms P-R-T Axes : 55 29 54 degrees QTcB Int : 426 ms Sinus bradycardia Nonspecific T wave abnormality Abnormal ECG Confirmed by Dharmesh Gonzalez ([id number]), rewrite editor NEERAJ JAQUEZ ([id number]) on 07/05/2025 1:06:35 PM Referred By: Confirmed By: Dharmesh Gonzalez
--- NOTE | 2025-07-01 15:56 | EX.ED.DYSGE1 ---
HPI History of Present Illness Chief Complaint: Hypertension Detail of Chief Complaint: Indigestion similar to what I expected with my WA in 2012 and 2014. Informant: patient and spouse/S.O. Onset/Context/Timing Onset: Today and Hours Context: Sudden Onset Timing: Intermittent (8 minutes yeah I will take the with mild shortness of breath or) Quality: Patient is a 70-year-old woman with history coronary disease. Location: Epigastric and subxiphoid Current Severity: Gone Maximum Severity: Moderate Worsened by: Nothing Relieved by: Not applicable Associated Symptoms Associated Symptoms: Mild shortness of breath Narrative Narrative: Patient is a 70-year-old female. She has no known history coronary disease. She has had 2 MIs. She has total 3 stents. She states she [place] the [place] when she developed indigestion subxiphoid area some associated presentation she had for her MIs. There was no radiation of the discomfort to her jaw, neck, back, or extremities right or left. She ate pizza 2 hours prior. She has no history of reflux, peptic ulcer disease or hiatal hernia. She has no history of gallbladder problems or intolerance to greasy or fried foods. She does take 182 mg of aspirin daily. She does have history of whitecoat syndrome. She went to the first-aid tent when she developed the discomfort. Her blood pressure at that time was 190. She states it goes up when she has it checked at the doctor's office. Her normal is 135-145. An EKG was obtained when she was pain-free timed at 1122. The EKG is unremarkable acute ischemia. Rate is 63 beats. QRS duration is 86 ms. QT duration is 422 ms. [place] is normal. Computer printout reads anterior T wave abnormality. I am in disagreement. There is artifact. There is no acute ischemic changes noted. Prior similar symptoms: Yes Recent Illness/Hospitalization: No PFSH PFS Medical History COVID Wears glasses Post-menopausal Anxiety Thyroid disease Arthritis High cholesterol DVT (deep venous thrombosis) History of IBS Non-smoker Asthma Leg cramps History of echocardiogram History of stress test Cardiology follow-up encounter History of heart attack Hx of tear of meniscus of knee joint Home Medications ?Medication ?Instructions ?Recorded ?Last Taken ?Type cholecalciferol (vitamin D3) 250 10,000 unit PO DAILY supplement 11/22/14 Unknown History mcg (10,000 unit) capsule levothyroxine 175 mcg tablet 150 mcg PO DAILY thyroid 11/22/14 09/11/22 05:00 History rosuvastatin 20 mg tablet 20 mg PO DAILY cholesterol 12/12/20 Unknown History aspirin 81 mg chewable tablet 162 mg PO DAILY 07/24/22 Unknown History hydrocodone-acetaminophen 5-325mg 1 tab PO Q8H 5 days #15 tabs 09/11/22 Unknown Rx 5mg-325mg Allergy/AdvReac Type Severity Reaction Status Date / Time No Known Allergies Allergy Verified 07/01/25 15:44 Surgical History Hx of cardiac catheterization Hx of total knee replacement Social History Smoking Status: Never smoker ROS ROS ED Constitutional Constitutional ED: Denies chills, fever(s), subjective or sweats Eyes Eyes: Denies blurry vision or change in vision Cardiovascular Cardiovascular: Reports chest pain; Denies orthopnea, palpitations, paroxysmal nocturnal dyspnea or racing heartbeat Respiratory/Chest Respiratory/Chest: Reports dyspnea; Denies cough, dyspnea on exertion, orthopnea or paroxysmal nocturnal dyspnea Gastrointestinal Gastrointestinal: Denies abdominal pain, diarrhea, melena, nausea or vomiting Musculoskeletal Musculoskeletal: Denies back pain or neck pain Endocrine Endocrinology: Denies cold intolerance or heat intolerance Hematologic/Lymphatic Hematologic/Lymphatic: Reports systems reviewed and no addt'l complaints, except as documented EXAM Physical Exam Const Vital Signs: 07/01/25 15:44 07/01/25 15:53 07/01/25 16:00 Temperature 98.3 F Temperature Source Temporal Pulse Rate 65 Respiratory Rate 16 Respiratory Effort Normal Non-Labored Respiratory Pattern Normal Blood Pressure 152/73 H 146/73 H Blood Pressure Mean 99 96 Pulse Ox 95 96 Oxygen Delivery Method Room Air 07/01/25 16:30 07/01/25 17:00 07/01/25 18:00 Temperature Temperature Source Pulse Rate 52 L 51 L 56 L Respiratory Rate 10 L 13 15 Respiratory Effort Respiratory Pattern Blood Pressure 125/66 H 135/68 H 158/71 H Blood Pressure Mean 85 89 100 Pulse Ox 93 95 98 Oxygen Delivery Method 07/01/25 19:00 07/01/25 19:15 Temperature Temperature Source Pulse Rate 49 L 50 L Respiratory Rate 14 11 L Respiratory Effort Respiratory Pattern Blood Pressure Blood Pressure Mean Pulse Ox 97 97 Oxygen Delivery Method Positive well nourished and well developed General Appearance ED: well developed and NAD; Negative for cyanotic or diaphoretic HEENT Reports moist mucous membranes HEENT Narrative: Head is atraumatic no cephalic. Ears normal. Nares patent. Eyes PERRL and EOMs intact bilaterally General Eye ED: Negative for scleral icterus Neck no JVD Resp normal respiratory effort and clear to auscultation bilaterally Cardio regular rate, regular rhythm, S1 normal heart sound, S2 normal heart sound and no murmurs GI normal to inspection, nondistended, normoactive bowel sounds, non-tender, non-distended and no masses; Negative for hepatosplenomegaly Extremity normal to inspection General Extremety ED: Negative for edema General Extremity: Negative for edema Neuro oriented x3 and CN's II-XII intact bilaterally Sensorium / Orientation: alert Psych mental status grossly normal Skin no rashes or lesions noted, no wounds and skin turgor normal MDM MDM MDM Narrative Medical decision making narrative: With history of WA and symptoms similar to when she experienced her WA with will obtain EKG and serial troponin levels. Since this occurred 2 hours after having nieveszznicole will get a competence metabolic panel to assess liver enzymes as well as renal function and electrolytes. CBC was obtained to assess H&H. Differential diagnosis is reflux, gastritis, biliary disease, atypical presentation for cardiac disease Lab Data Attestation: I reviewed the patient's lab results. Lab results narrative: CBC was normal. BMP was unremarkable. 1st and 2nd troponin less than 6 with a delta of 0. With 2 negative troponins cardiac etiology has been ruled out. Patient probably had indigestion as a cause of her pain. Labs: Laboratory Results - last 24 hr 07/01/25 07/01/25 16:07 18:04 WBC 4.8 RBC 4.27 Hgb 12.1 Hct 37.2 MCV 87.1 MCH 28.3 MCHC 32.5 RDW Std Deviation 43.8 RDW Coeff of Mat 13.8 Plt Count 179 MPV 10.4 Sodium 140 Potassium 3.7 Chloride 105 Carbon Dioxide 23.7 Anion Gap 11 BUN 21 H Creatinine 0.94 Estim Creat Clear Calc 53.58 Est GFR (MDRD) Non-Af 65 BUN/Creatinine Ratio 21.8 H Glucose 95 Calcium 9.5 Total Bilirubin 0.28 AST 21 ALT 11 Alkaline Phosphatase 75 Troponin T High Sens < 6 Troponin T Hi Sens 2 Hr < 6 Total Protein 6.9 Albumin 4.4 Globulin 2.6 Albumin/Globulin Ratio 1.7 EKG Initial EKG: Attestation: I personally reviewed and interpreted this EKG as follows: Interpretation: Sinus Bradycardia (Rate is 55. There is no acute ischemic changes. Computer is really not a specific T wave abnormality which is due to artifact. Parables 178 ms. QS duration 82 ms. QT duration 446 ms. [place] is normal) Discharge Plan Triage Chief Complaint: Hypertension ED Provider: [place] Dx/Rx/DC Orders Clinical Impression: Indigestion, History of coronary artery disease, Elevated blood pressure reading in office with white coat syndrome, without diagnosis of hypertension, Sinus bradycardia seen on library monitor Instructions: ED GERD (Adult) Prescriptions: No Action levothyroxine 175 MCG tablet 150 mcg PO DAILY Patient Comments: thyroid med cholecalciferol (vitamin D3) 10,000 UNIT capsule 10,000 unit PO DAILY Patient Comments: supplement rosuvastatin 20 MG tablet 20 mg PO DAILY aspirin 81 MG tablet,chewable 162 mg PO DAILY hydrocodone-acetaminophen 5-325 mg tablet 1 tab PO Q8H 5 Days Qty: 15 0RF Primary Care Provider: Salma Vang Referrals: Salma Vang MD [Primary Care Provider] - As Needed Print Language: Khmer Disposition Disposition: Home, Self Care
[2025-07-01 16:30] LABS: Hematocrit 37.2 % (37-47); Hemoglobin 12.1 g/dL (12.0-15.0); Mean Corp Hgb Conc 32.5 g/dL (32-36); Mean Corpuscular Volume 87.1 fL (81-99); Mean Platelet Vol. 10.4 fl (6.2-12.0); Platelet Count 179 K/mm3 (150-450); RBC Distribution Width CV 13.8 % (11.6-14.6); RBC Distribution Width SD 43.8 fl (35.1-43.9); Red Blood Count 4.27 M/mm3 (4.2-5.4); White Blood Count 4.8 K/mm3 (4.4-11.0)
[2025-07-01 16:43] LABS: AST(SGOT) 21 U/L (<=31); Alanine Aminotransfer ALT/SGPT 11 U/L (<=34); Albumin, Serum 4.4 g/dL (3.4-4.8); Alkaline Phosphatase 75 U/L (35-104); Anion Gap 11 (5-15); BUN 21 mg/dL (4-19); BUN/Creat Ratio 21.8 RATIO (10-20); Calcium,Total 9.5 mg/dL (7.6-11.0); Carbon Dioxide 23.7 mmol/L (21.0-32.0); Chloride 105 mmol/L (98-108); Estimated Creatinine Clearance 53.58 ml/min (50-250); Globulin 2.6 g/dL (2.2-4.2); Glucose 95 mg/dL (70-99); Potassium 3.7 mmol/L (3.3-5.1); Troponin T High Sensitivity < 6 ng/L (<=14)
[2025-07-01 19:36] LABS: Troponin T High Sens 2 HR < 6 ng/L (<=14)
== END 2025-07-01 20:00 | disposition home or self-care (01) ==
PROVIDERS: Emergency Provider Emergency Medicine; PCP Internal Medicine; Visit Provider Emergency Medicine
DX: R03.0 Elevated blood-pressure reading, without diagnosis of hypertension (principal); I25.10 Atherosclerotic heart disease of native coronary artery without angina pectoris; K30 Functional dyspepsia; E78.00 Pure hypercholesterolemia, unspecified; I25.2 Old myocardial infarction; Z79.82 Long term (current) use of aspirin; Z79.899 Other long term (current) drug therapy; Z96.659 Presence of unspecified artificial knee joint; R00.1 Bradycardia, unspecified
CPT/HCPCS: 80053; 84484; 85027; 93005; 99283; A4216